=== PATIENT | male | born 1960 | race Caucasian/White ===

== ENCOUNTER 2019-06-14 23:35 | Observation (INO) ==
[2019-06-15 00:08] LABS: BASO# 0.03 X1000 (0.0-0.2); BASO% 0.3 % (0.0-0.8); EOS# 0.12 X1000 (0.0-0.7); HEMATOCRIT 42.4 % (42.0-52.0); HEMOGLOBIN 14.2 g/dL (14.0-18.0); IMM GRAN# 0.03 X1000 (0.0-0.04); IMM GRAN% 0.3 % (0.0-0.5); LYMPH# 2.29 X1000 (1.2-3.4); MCH 30.1 PG (27-31); MCHC 33.5 g/dL (33-37); MCV 89.8 FL (81-99); MONO# 1.34 X1000 (0.11-0.59); MONO% 11.7 % (1.7-9.3); MPV 10.1 FL (7.4-10.4); NEUT# 7.66 X1000 (1.4-6.5); NEUT% 66.7 % (42.2-75.2); PLT 303 X1000 (130-400); RBC 4.72 XMIL (4.7-6.1); WBC 11.47 X1000 (4.8-10.8)
[2019-06-15 00:30] LABS: AGAP 14; ALB/GLOB RATIO 1.6; ALBUMIN 4.6 g/dL (3.5-5.0); ALKALINE PHOSPHATASE 55 U/L (32-122); BUN 9 mg/dL (8-22); CALCIUM 8.6 mg/dL (8.8-10.2); CHLORIDE 96 mmol/L (98-107); COSMO 268; CREATININE 0.8 mg/dL (0.7-1.2); ESTIMATED GFR > 60; GLUCOSE 112 mg/dL (70-104); GOT 18 U/L (10-34); GPT 18 U/L (10-44); INR 0.97; SODIUM 134 mmol/L (136-145); TCO2 24 mmol/L (25-35); TOTAL BILIRUBIN 0.28 mg/dL (0.20-1.00); TOTAL PROTEIN 7.5 g/dL (6.3-8.3)
[2019-06-15 00:31] LABS: PTT 27.8 Seconds (22.3-41.8)
[2019-06-15] MEDS ORDERED: NS 1,000 ML IV ONE (00:34)
--- NOTE | 2019-06-15 00:38 | PROVIDER DOCUMENTATION ---
This chart was entered by Marianne Zapata Scribe, acting as scribe for Lorraine Avalos CRNP. HPI-Neurological Disorder - General Stated Complaint: SEIZURES Time Seen by Provider: 06/14/19 23:37 Source: family, EMS Unable to obtain history due to:: altered Allergies/Adverse Reactions: Patient Allergies Allergy/AdvReac Type Severity Reaction Status Date / Time No Known Allergies Allergy Verified 06/15/19 00:55 - History of Present Illness-Neuro Nature of Presenting Problem: pt is a 59 yr old male presenting via EMS post seizure. 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 admits he has not had any med changes or imaging since changes in seizures began. wfe reports pt has not missed any med doses or had any other changes. - Seizure First time to have a seizure?: No Witnessed seizure?: No Episode details: reports: unknown duration, unknown number Episode Frequency: frequent episodes Status Epilepticus: No Preceding symptoms/context:: active Character of Seizure: reports: lost consciousness, generalized shaking all over Post-ictal Symptoms: reports: confusion Seizure related injury: none Review of Systems - Adult - REVIEW OF SYSTEMS - ADULT ROS:: ROS per family Constitutional: reports: no symptoms reported Eyes: reports: no symptoms reported Ears, Nose, Mouth & Throat: reports: no symptoms reported Cardiovascular: reports: no symptoms reported Respiratory: reports: no symptoms reported Gastrointestinal: reports: no symptoms reported Genitourinary: reports: no symptoms reported Musculoskeletal: reports: no symptoms reported Integumentary: reports: no symptoms reported Neurological: reports: seizure Psychiatric: reports: no symptoms reported Endocrine: reports: no symptoms reported Hematologic/Lymphatic: reports: no symptoms reported Allergic/Immunologic: reports: no symptoms reported All Other Systems: Reviewed and Negative Past History - Adult - PAST MEDICAL HISTORY-ADULT Review of Records: reports: Old Records Reviewed, Nursing Assessment Review, Medications Reviewed, Social history reviewed & non-contributory. Major Childhood Illnesses: reports: denies history Cardiovascular: reports: denies history Respiratory: reports: denies history Gastrointestinal: reports: denies history Obstetrical/Gynecological: reports: denies history Genitourinary: reports: denies history Musculoskeletal: reports: denies history Neurological: reports: denies history Endocrine/Immune: reports: denies history Other Conditions: reports: denies history - IMMUNIZATION STATUS Childhood Immunizations: See Nurse Assessment Flu Vaccine: See Nurse Assessment - FAMILY HISTORY Family History: reviewed, not pertinent - SOCIAL HISTORY Smoking: non-smoker Substance Use: denies Living Situation: family Physical Exam- Neurological - Physical Exam-Neuro General Appearance: obtunded Eye Exam: bilateral eye: normal inspection, PERRL HENMT: normocephalic/atraumatic, moist mucous membranes Head Injury: no evidence of injury Neck: non-tender, full range of motion, supple, normal inspection Respiratory: chest non-tender, lungs clear, normal breath sounds Cardiovascular: normal peripheral pulses, regular rate, rhythm, no edema Abdominal Exam: non tender, soft Lymphatic: no adenopathy Peripheral Pulses: radial (R): 2+, radial (L): 2+ Extremity: normal range of motion Integumentary: normal color, normal turgor, warm/dry - Glascow Coma Scale Best Eye Response: (4) open spontaneously Best Verbal Response: (1) no verbal response (11) Best Motor Response: (6) obeys commands Progress - PLAN OF CARE/RESULTS Progress/Plan/Lab Results: Vital Signs - 8 hr 06/14/19 23:59 Pulse Rate 72 Respiratory Rate 20 Blood Pressure 131/81 O2 Sat by Pulse Oximetry 96 Laboratory Results - last 24 hr 06/14/19 06/14/19 06/14/19 23:47 23:47 23:47 WBC 11.47 H RBC 4.72 Hgb 14.2 Hct 42.4 MCV 89.8 MCH 30.1 MCHC 33.5 RDW Std Deviation 13.0 Plt Count 303 MPV 10.1 Immature Gran % (Auto) 0.3 Neut % (Auto) 66.7 Lymph % (Auto) 20.0 L Kings % (Auto) 11.7 H Eos % (Auto) 1.0 Baso % (Auto) 0.3 Immature Gran # (Auto) 0.03 Neut # (Auto) 7.66 H Lymph # (Auto) 2.29 Kings # (Auto) 1.34 H Eos # (Auto) 0.12 Baso # (Auto) 0.03 PT 13.0 INR 0.97 PTT (Actin FS) 27.8 Sodium 134 L Potassium 4.0 Chloride 96 L Carbon Dioxide 24 L Anion Gap 14 BUN 9 Creatinine 0.8 Estimated GFR/1.73 m2 > 60 BUN/Creatinine Ratio 11 Glucose 112 H POC Glucose Calculated Osmolality 268 Calcium 8.6 L Total Bilirubin 0.28 AST 18 ALT 18 Alkaline Phosphatase 55 Total Protein 7.5 Albumin 4.6 Globulin 2.9 Albumin/Globulin Ratio 1.6 06/14/19 23:55 WBC RBC Hgb Hct MCV MCH MCHC RDW Std Deviation Plt Count MPV Immature Gran % (Auto) Neut % (Auto) Lymph % (Auto) Kings % (Auto) Eos % (Auto) Baso % (Auto) Immature Gran # (Auto) Neut # (Auto) Lymph # (Auto) Kings # (Auto) Eos # (Auto) Baso # (Auto) PT INR PTT (Actin FS) Sodium Potassium Chloride Carbon Dioxide Anion Gap BUN Creatinine Estimated GFR/1.73 m2 BUN/Creatinine Ratio Glucose POC Glucose 98 Calculated Osmolality Calcium Total Bilirubin AST ALT Alkaline Phosphatase Total Protein Albumin Globulin Albumin/Globulin Ratio Orders Category Date Time Status NEWS Score 2-4:Order NEWS Lactate Series NOW Care 06/15/19 00:[address] HEAD W/O CONTRAST [CT] Stat Exams 06/14/19 23:42 Taken CARBAMAZEPINE [HH] Stat Lab 06/14/19 23:47 Received CBC WITH ELECTRONIC DIFF [HEME] Stat Lab 06/14/19 23:47 Completed COMPREHENSIVE METABOLIC PANEL [CHEM] Stat Lab 06/14/19 23:47 Completed PROTIME WITH INR [COAG] Stat Lab 06/14/19 23:47 Completed PTT [COAG] Stat Lab 06/14/19 23:47 Completed UA NIMS W/REFLEX CULT [URINALYSIS] Stat Lab 06/14/19 23:42 Uncollected URINE DRUG SCREEN Stat Lab 06/14/19 23:42 Uncollected 0.9% Sodium Chloride Inj [Ns] 1,000 ml Med 06/15/19 00:34 Active IV 999 mls/hr Levetiracetam [Keppra] 500 mg Med 06/15/19 00:57 Active 0.9% Sodium Chloride Inj [Ns] 100 ml IV NOW Lorazepam [Ativan] Med 06/15/19 00:53 Discontinued 0.5 mg IV NOW ONE Result Diagrams: 06/14/19 23:47 06/14/19 23:47 - REASSESSMENT Reassessment #1 Time Reassessed: 00:56 Status: unchanged (RN reports pt staring in to space r hand jerking, ativan ordered) - EKG 1 Time of EKG reading by physician:: 23:52 EKG Read and Signed by:: Brenda Ann EKG Interpretation (*Must complete 3 of following elements*): Abnormal (tall tented t waves) Rate: 65 Rhythm: nsr Irving: normal QRS: normal - CT/MRI 1 CT Study: Head Impression: See EMR Report (No acute process, chronic white mater changes Maninder Mirza MD) - CONSULTS/PCP/HOSPITALIST Notification #1 *Consult/PCP/Hospitalist*: Dr. Gramajo Time Discussed: 01:09 Consult Disposition: Admit Departure - Departure Date of Disposition Decision: 06/15/19 Time of Disposition Decision: 01:04 DIAGNOSIS: Seizure Disposition: ADMITTED INPATIENT 09 Certified Medical Emergency: Emergent Condition: Stable - Critical Care Note This patient required my direct & personal management of CC.: Yes Total Time (mins): 33 Critical Care Statement: This patient required my direct personal management to treat or rule out processes, the absence of which, could potentiallly result in sudden, clinically significant life or limb threatening deterioration. Attestation - Physician/ CORNELIUS Attestation Patient care was provided by Advanced Practice Provider:: Yes Advanced Practice Provider:: Lorraine Avalos Advanced Practice Provider documentation review:: The Mid-level provider documentation, treatment plan and medical decision making was reviewed by the physician who agrees with all treatment and medical decision making by the P. The physician spent face to face time with patient:: No Advanced Practice Provider documentation review:: Supervising physician onsite and consulted in the evaluation and care of this patient. The physician did not have a face to face encounter with the patient. This chart was documented by the indicated scribe, (Marianne Zapata Scribe) and accurately reflects the services I performed and decisions made by me, Lorriane Avalos CRNP, as attested by the provider's signature.
[2019-06-15] MEDS ORDERED: ATIVAN IV ONE (00:53)
[2019-06-15] MEDS ORDERED: KEPPRA 500 MG in NS 100 ML IV ONE (00:57)
[2019-06-15] MEDS ORDERED: DUONEB (A & A) INH ONE (03:36)
[2019-06-15] MEDS ORDERED: TYLENOL PO PRN (03:51)
[2019-06-15] MEDS ORDERED: ZOFRAN IV PRN (03:51)
[2019-06-15] MEDS ORDERED: NS 1,000 ML IV SCH (04:00)
[2019-06-15 04:30] LABS: CK INDEX 1.1 (0.0-2.5); CK-MB 2.3 ng/mL (0.0-5.0)
[2019-06-15] MEDS ORDERED: NORCO-7.5 PO PRN (04:50)
[2019-06-15] MEDS ORDERED: ATIVAN IV PRN (04:52)
[2019-06-15 05:42] VITALS: BP 155/58
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
--- NOTE | 2019-06-15 07:04 | Diag Imaging Result Doc PS360 ---
EXAM: CHEST-PORTABLE 06/15/2019 HISTORY: Wheezing/Rhonchi bilateral TECHNIQUE: AP portable at 1543 COMMENT: There are emphysematous changes in the upper lung zones particularly in the right apex. Lungs are not as hyperinflated as on 04/22/2015. The heart size and pulmonary vascularity are within normal limits. IMPRESSION: COPD. Electronically signed by Filiberto Thakkar 06/15/2019 7:02 AM
--- NOTE | 2019-06-15 07:28 | Diag Imaging Result Doc PS360 ---
EXAM: CT HEAD W/O CONTRAST INDICATION: increase in seizure activity TECHNIQUE: This exam was performed using automated exposure control, adjustment of mA or kV according to patient size, and/or use of iterative reconstruction technique. COMPARISON: 05/09/2018 FINDINGS: There is no definite acute infarct given the limited sensitivity of CT versus MRI. There is no discrete intracranial mass, mass effect, or intracranial hemorrhage. The surrounding soft tissues and bony structures are essentially unremarkable. IMPRESSION: No evidence of acute intracranial pathology. Electronically signed by Britton Asencio 06/15/2019 7:26 AM
--- NOTE | 2019-06-15 08:19 | EKG Report ---
Test Performed on : 06/14/2019 11:52:06 PM Test Reason : ED. NO EKG ORDER FOR MUSE Blood Pressure : / mmHG Vent. Rate : 065 BPM Atrial Rate : 065 BPM P-R Int : 150 ms QRS Dur : 082 ms QT Int : 388 ms P-R-T Axes : 075 056 071 degrees QTc Int : 403 ms Normal sinus rhythm. Normal ECG No previous ECGs available Unconfirmed Result
[2019-06-15] MEDS ORDERED: DUONEB (A & A) INH PRN (09:00)
[2019-06-15] MEDS ORDERED: TEGRETOL XR PO SCH (09:00)
== END 2019-06-15 06:54 | disposition left against medical advice (07) ==
LOC: ED 23:35 → 3N 23:35
PROVIDERS: ADMIT Internal Medicine; ATTEND Emergency Medicine